=== PATIENT | female | born 1955 | race Caucasian/White ===

== ENCOUNTER → 2016-02-18 | Outpatient (CLI) | payer BC, OTHER ==
[~2016-02-18] MED LIST: NOHOMEMEDICATIONS; NORCO 5-325 TA1 EACH PO
--- NOTE | ~2016-02-18 | P ---
[facility] [place] [address] PROCEDURE REPORT Name: VAIBHAV CRUZ Room #: REG WARREN Mckay#: [id number] Admission: 02/18/16 Attend Phys: Leonora Armando DO Discharge: Date of : 55 Report #: [id number] THIS REPORT FOR: //name// CC: [facility] DATE OF SERVICE: 02/18/2016 PROCEDURE: Colonoscopy with biopsy. Patient of Dr. Brian Arguello. INDICATION FOR PROCEDURE: Routine screening, family history of colon cancer in her sister when her sister was 45 years old and her farther had a history of colon polyps as well. DESCRIPTION OF PROCEDURE: Informed consent for this procedure was obtained prior to the administration of any medication. The risks of the procedure which include bleeding, perforation, infection, complications of sedation and the possibility I could miss something have been explained to the patient and she has indicated her consent by signing. Propofol was slowly titrated before and during this procedure for the patient comfort by the anesthesia service. The e[employer] colonoscope was introduced through the anal sphincter and advanced under direct visualization to the terminal ileum. Findings are noted on withdrawal of the scope. The terminal ileal mucosa appears normal. Cecum, normal mucosa. Ascending colon, normal mucosa. Hepatic flexure, normal mucosa. Transverse colon, normal mucosa. Splenic flexure, normal mucosa. Descending colon, normal mucosa. Sigmoid colon, normal mucosa. Rectum, normal mucosa except for one 3 mm sessile polyp at 10 cm from the anal verge. It was removed in toto with the regular biopsy forceps and sent to pathology lab. Good hemostasis was noted after that polypectomy. Retroflex view in the rectum is negative for any abnormalities. The scope was withdrawn. The patient went to the recovery area in stable condition. She tolerated the procedure well. IMPRESSION: Rectal polyp, size 3 mm, removed as above. Other than that, normal colonoscopic exam to the terminal ileum. RECOMMENDATIONS: To await the path report and she should have a followup colonoscopy in approximately [address] [address] PROCEDURE REPORT Name: VAIBHAV CRUZ Room #: REG WARREN Mckay#: [id number] Admission: 02/18/16 Attend Phys: Leonora Armando DO Discharge: Date of : 55 Report #: [id number] Thank you very much once again for allowing me to participate in her care. <ELECTRONICALLY SIGNED> By: Leonora Armando DO 02/18/161855 1345 50 Leonora Armando DO /nt
--- NOTE | ~2016-02-18 | S ---
[facility] [place] [address] SURGICAL PATH RPT PROCEDURE Name: VAIBHAV CRUZ Room #: REG Rosana Mercado.#: [id number] Admission: 02/18/16 Date of : 55 Discharge: Report #: [id number] Path Case #: [id number] PATHOLOGY REPORT COLLECTION DATE: 02/18/2016 RECEIVED DATE: 02/19/2016 SUBMITTING PHYS: Dr. Leonora Armando OTHER PHYS: Dr. Brian Arguello SPECIMEN(S) RECEIVED: A.Polyp rectum at 10 cm * * * * * * * * * * * * FINAL DIAGNOSIS: "Polyp rectum at 10 cm", biopsy: - Tubular adenoma; no high grade dysplasia. (CLW:csd; d/t: 02/20/2016) PATHOLOGIST: Alean Ledesma M.D. REPORT ELECTRONICALLY SIGNED BY: Alena Ledesma M.D. DATE/TIME: 02/20/2016 12:21 * * * * * * * * * * * * GROSS PATHOLOGY: Received in formalin labeled "RajanVaibhav scherer and bx rectal polyp," is a segment of farrell soft tissue measuring 0.5 cm in maximum dimension. The specimen is submitted entirely in cassette A1. (TTL; 02/19/2016) CLINICAL HISTORY: Screening INITIAL CPT CODE(S): A; 45072 Professional services performed by [facility] at [facility] [address], [place] [address] Technical services performed by [facility] at [address] [place], [place] [address]., [address], [place] [address]. [facility] [address] [place] [address] [address] [place] [address] SURGICAL PATH RPT PROCEDURE Name: VAIBHAV CRUZ Room #: REG [facility] Rogelio.#: [id number] Admission: 02/18/16 Date of : 55 Discharge: Report #: [id number] Path Case #: [id number] [place] [address] PHONE: [phone] DIRECTOR: Rafael Salter M.D. * * * END OF REPORT * * *
== END | disposition home or self-care (01) ==
LOC: GI 02:04
DX: Z12.11 Encounter for screening for malignant neoplasm of colon (principal); K62.1 Rectal polyp; Z80.0 Family history of malignant neoplasm of digestive organs
CPT/HCPCS: 62110; 62900